=== PATIENT | female | born 1975 | race Caucasian/White ===

== ENCOUNTER 2024-01-05 19:15 | Emergency (ER) | payer MEDICAID ==
[~2024-01-05] VITALS: Ht 160 cm; Wt 68.8 kg
[2024-01-05 19:49] VITALS: O2SAT 98
[2024-01-05 20:22] LABS: BASOPHILS % 1.2 % (0.0-2.0); EOSINOPHILS % 2.1 % (0.0-5.0); HEMATOCRIT. 37.8 % (36.0-48.0); HEMOGLOBIN. 12.3 g/dL (12.0-16.0); LYMPHOCYTES % 39.6 % (20.0-50.0); MEAN CORPUSCULAR HEMOGLOBIN 29.4 pg (28.0-32.0); MEAN CORPUSCULAR HGB CONC 32.6 g/dL (31.0-37.0); MEAN CORPUSCULAR VOLUME 90.3 fL (81.0-99.0); MEAN PLATELET VOLUME 10.6 fl (7.4-10.4); MONOCYTES % 12.2 % (2.0-8.0); NEUTROPHILS % 44.9 % (40.0-76.0); PLATELET 247 x1000/uL (130-400); RED BLOOD CELL COUNT 4.18 mill/uL (4.2-5.4); RED CELL DISTRIBUTION WIDTH 15.6 % (11.6-14.6); WHITE BLOOD COUNT 8.1 x1000/uL (4.5-11.0)
[2024-01-05 20:28] LABS: CHLORIDE 108 mEq/L (98-107); POTASSIUM 4.5 mEq/L (3.5-5.1); SODIUM 138 mEq/L (136-145)
[2024-01-05 20:29] LABS: CALCIUM 9.2 mg/dL (8.7-10.4); CARBON DIOXIDE 28 mEq/L (21-32); INR 0.9; PROTHROMBIN TIME 10.4 sec (9.6-11.0)
[2024-01-05 20:34] LABS: CREATININE 0.6 mg/dL (0.6-1.0); GLUCOSE 91 mg/dL (70-105); UREA NITROGEN BLOOD 12 mg/dL (9-23)
[2024-01-05] MEDS ORDERED: NAPR-681 PO (21:39)
[2024-01-05 22:01] VITALS: BP 131/90; PULSE 71; RESP 16; TEMP 36.78072; O2SAT 98
== END 2024-01-05 22:02 | disposition home or self-care (01) ==
LOC: ER 19:15
DX: S00.83XA Contusion of other part of head, initial encounter (principal); M25.532 Pain in left wrist; R51.9 Headache, unspecified; X58.XXXA Exposure to other specified factors, initial encounter; Y93.89 Activity, other specified; Y92.89 Other specified places as the place of occurrence of the external cause; Y99.8 Other external cause status
CPT/HCPCS: 36415; 70486; 73110; 80048; 85025; 93005; 99285

== ENCOUNTER 2024-07-14 04:51 | Emergency (ER) | payer MEDICAID ==
[~2024-07-14] VITALS: Ht 160 cm; Wt 65.1 kg
[~2024-07-14 04:51] MED LIST: NAPR-681 PO
[2024-07-14 05:10] VITALS: O2SAT 100
[2024-07-14 06:53] LABS: CLARITY URINE CLEAR (CLEAR); COLOR URINE YELLOW (YELLOW); GLUCOSE URINE NEGATIVE (NEGATIVE); KETONES URINE NEGATIVE (NEGATIVE); LEUKOCYTE ESTERASE URINE NEGATIVE (NEGATIVE); NITRITE URINE NEGATIVE (NEGATIVE); OCCULT BLOOD URINE NEGATIVE (NEGATIVE); PROTEIN URINE NEGATIVE (NEGATIVE); SPECIFIC GRAVITY URINE 1.005 (1.005-1.030); UROBILINOGEN URINE 0.2 E.U./dL (0.2-1.0)
[2024-07-14 07:00] VITALS: BP 129/73; PULSE 66; RESP 16; TEMP 36.6; O2SAT 100
[2024-07-14] MEDS ORDERED: NAPR-681 MT (07:12)
== END 2024-07-14 07:20 | disposition home or self-care (01) ==
LOC: ER 04:51
DX: N81.4 Uterovaginal prolapse, unspecified (principal)
CPT/HCPCS: 81003; 76830; 76856; 99284; Z7610